=== PATIENT | male | born 1990 | race Caucasian/White ===

== ENCOUNTER 2017-08-23 19:22 | Inpatient (IN) | payer OTHER ==
[~2017-08-23] VITALS: Ht 177.8 cm; Wt 101.3 kg
[2017-08-23 20:18] LABS: CALCIUM 9.2 mg/dL (8.5-10.1); CARBON DIOXIDE 22.9 mmol/L (21-32); CHLORIDE SERUM 99 mmol/L (98-107); CREATININE SERUM 1.5 mg/dL (0.7-1.3); GFR1 > 60 mL/min; GLUCOSE SERUM 136 mg/dL (74-106); POTASSIUM SERUM 3.4 mmol/L (3.5-5.1); SODIUM SERUM 138 mmol/L (136-145)
[2017-08-23 20:22] LABS: ALBUMIN 4.4 g/dL (3.4-5.0); ALKALINE PHOSPHATASE 99 U/L (46-116); ALT/SGPT 45 U/L (16-63); AST/SGOT 37 U/L (15-37); BILIRUBIN TOTAL 0.9 mg/dL (0.20-1.00); MAGNESIUM 2.7 mg/dL (1.8-2.4)
[2017-08-23 20:23] LABS: BASOPHIL % 0.4 % (0-2); PLATELET COUNT 311 x10^3mcL (130-400); RED CELL DISTRIBUTION WIDTH 13.5 % (11.5-14.5)
[2017-08-23 20:25] LABS: TOTAL PROTEIN, SERUM 8.8 g/dL (6.4-8.2)
[2017-08-23 22:10] LABS: AMPHETAMINE QUAL UR NONE DETECTED (NEG <=1000)
[2017-08-23] MEDS ORDERED: KLO0.5 PO (22:49)
[2017-08-23] MEDS ORDERED: TRAZODONE50 M1 PO (22:50)
[2017-08-23] MEDS ORDERED: APAP/HYDROCODON1 T13 PO (22:50)
[2017-08-23] MEDS ORDERED: BYSTOLIC10 M1 PO (22:51)
[2017-08-23 23:44] VITALS: BP 108/87
[2017-08-23 23:48] VITALS: Ht 177.8 cm; Wt 101.3 kg
[2017-08-24 01:16] LABS: T3 TOTAL 1.53 ng/mL
[2017-08-24 01:19] LABS: FREE T4 1.39 ng/dL (0.76-1.46); FREE THYROXINE INDEX 4.2 ug/dL (1.4-4.5); T4(THYROXINE) 11.6 ug/dL (4.7-13.3)
[2017-08-24 06:08] LABS: UA SPECIFIC GRAVITY 1.025 (1.005-1.035); microscopic required? YES; urine erythrocyte TRACE (NEGATIVE)
[2017-08-24 06:18] VITALS: BP 111/64
[2017-08-24 06:57] LABS: BASOPHIL % 0.4 % (0-2); PLATELET COUNT 266 x10^3mcL (130-400); RED CELL DISTRIBUTION WIDTH 13.3 % (11.5-14.5)
[2017-08-24 07:15] LABS: CALCIUM 8.4 mg/dL (8.5-10.1); CARBON DIOXIDE 26.8 mmol/L (21-32); CHLORIDE SERUM 106 mmol/L (98-107); CHOLESTEROL 159 mg/dL (<200); CREATININE SERUM 0.8 mg/dL (0.7-1.3); GFR1 > 60 mL/min; GLUCOSE SERUM 83 mg/dL (74-106); MAGNESIUM 2.5 mg/dL (1.8-2.4); POTASSIUM SERUM 3.3 mmol/L (3.5-5.1); SODIUM SERUM 142 mmol/L (136-145); TRIGLYCERIDES 105 mg/dL (<150)
[2017-08-24 07:17] LABS: CHOLESTEROL/HDL RATIO 5.1; HDL CHOLESTEROL 31 mg/dL (40-60)
[2017-08-24 10:19] VITALS: BP 125/66
[2017-08-24 13:43] VITALS: BP 138/84
[2017-08-24 17:13] VITALS: BP 119/73
[2017-08-24 21:42] VITALS: BP 135/74
[2017-08-25] MEDS ORDERED: KEP500 PO (05:28)
[2017-08-25 05:29] VITALS: BP 119/52
[2017-08-25] MEDS ORDERED: SEROQUEL300 MG PO (05:30)
[2017-08-25] MEDS ORDERED: SEROQUEL100 MG PO (05:32)
[2017-08-25 06:48] LABS: BASOPHIL % 0.6 % (0-2); PLATELET COUNT 225 x10^3mcL (130-400); RED CELL DISTRIBUTION WIDTH 13.3 % (11.5-14.5)
[2017-08-25 06:56] LABS: CALCIUM 8.6 mg/dL (8.5-10.1); CHLORIDE SERUM 108 mmol/L (98-107); CREATININE SERUM 0.8 mg/dL (0.7-1.3); GFR1 > 60 mL/min; GLUCOSE SERUM 90 mg/dL (74-106); MAGNESIUM 2.2 mg/dL (1.8-2.4); PHOSPHOROUS 3.5 mg/dL (2.5-4.9); POTASSIUM SERUM 4.2 mmol/L (3.5-5.1); SODIUM SERUM 139 mmol/L (136-145)
[2017-08-25 09:44] VITALS: BP 127/77
[2017-08-25 11:44] VITALS: BP 127/77
== END 2017-08-25 12:48 | disposition left against medical advice (07) | DRG 100 ==
LOC: ED 19:22 → DU 22:42
PROVIDERS: Emergency Medicine; ADMIT Family Medicine
DX: R56.9 Unspecified convulsions (principal); N17.0 Acute kidney failure with tubular necrosis; F31.30 Bipolar disorder, current episode depressed, mild or moderate severity, unspecified; R65.10 Systemic inflammatory response syndrome (SIRS) of non-infectious origin without acute organ dysfunction; E86.0 Dehydration; E87.6 Hypokalemia; E83.39 Other disorders of phosphorus metabolism; E83.41 Hypermagnesemia; I10 Essential (primary) hypertension; G89.29 Other chronic pain; D64.9 Anemia, unspecified; F17.210 Nicotine dependence, cigarettes, uncomplicated; F12.10 Cannabis abuse, uncomplicated; Z68.32 Body mass index [BMI] 32.0-32.9, adult; Z79.891 Long term (current) use of opiate analgesic
CPT/HCPCS: 83880; 84439; 99406; J1644; J1885; J2060; J2270; J7030; Q0092

== ENCOUNTER 2019-06-19 13:28 | Emergency (ER) | payer OTHER ==
[~2019-06-19] VITALS: Ht 177.8 cm; Wt 91.6 kg
[~2019-06-19 13:28] MED LIST: APAP/HYDROCODON1 T13 PO; BYSTOLIC10 M1 PO; KEP500 PO; KLO0.5 PO; SEROQUEL100 MG PO; SEROQUEL300 MG PO; TRAZODONE50 M1 PO
[2019-06-19 13:46] VITALS: BP 138/93; Ht 177.8 cm; Wt 91.6 kg
== END 2019-06-19 15:59 | disposition left against medical advice (07) ==
LOC: ED 13:28
DX: Z53.21 Procedure and treatment not carried out due to patient leaving prior to being seen by health care provider (principal); I10 Essential (primary) hypertension
CPT/HCPCS: G0480